=== PATIENT | female | born 1975 | race Two or more races ===

== ENCOUNTER 2016-06-29 15:03 | Emergency (ER) | payer OTHER ==
[2016-06-29 15:14] VITALS: BP 145/68; PULSE 78; RESP 18; TEMP 98.4; O2SAT 97
--- NOTE | 2016-06-29 16:38 | EDPHY ---
H & P Time Seen by Provider: 06/29/16 15:56 HPI/ROS: CHIEF COMPLAINT: Left foot pain. HISTORY OF PRESENT ILLNESS: 41-year-old female presents to the emergency department with left foot pain. The patient was in an exercise class earlier this morning and twisted her left foot. She complains of isolated pain to the left foot. She denies any other trauma or injury. She has pain especially with weight-bearing. ROS: Denies numbness or tingling in her toes, pain in her left ankle, left calf or knee. Past Medical/Surgical History: Negative Social History: and lives in [place] Smoking Status: Never smoked Physical Exam: Examination left foot reveals swelling and ecchymosis to the dorsal lateral aspect of her left foot. She has reproducible pain with palpation to the base of the 5th metatarsal of the left foot. No palpable crepitus or other bony abnormality. Nontender to palpate the left ankle. Calf is nontender. Achilles tendon is intact. Strong dorsalis pedis pulse on the dorsal aspect of the left foot. Constitutional: Initial Vital Signs Temperature (C) 36.9 C 06/29/16 15:11 Heart Rate 78 06/29/16 15:11 Respiratory Rate 18 06/29/16 15:11 Blood Pressure 145/68 H 06/29/16 15:11 O2 Sat (%) 97 06/29/16 15:11 O2 Delivery Mode Room Air Allergies/Adverse Reactions: No Known Allergies Allergy (Unverified 06/29/16 15:16) Home Medications: Medication Instructions Recorded NK [No Known Home Meds] 06/29/16 MDM/Departure - MDM Diagnostics: X-rays of the left foot reveal nondisplaced fracture of the base of the 5th metatarsal. This is reviewed by myself the PAC system. Radiology interpretation to follow. Procedures: Patient was placed in a postop shoe and examined post application in good placement with normal [employer]. ED Course/Re-evaluation: 41-year-old female presents with left foot pain. X-rays reveal left 5th metatarsal fracture. She was placed in a postop shoe and given orthopedic referral. - Depart Disposition: Home, Routine, Self-Care Clinical Impression: Fracture of fifth metatarsal bone of left foot Qualifiers: Encounter type: initial encounter Fracture type: closed Fracture alignment: nondisplaced Qualified Code(s): S92.355A - Nondisplaced fracture of fifth metatarsal bone, left foot, initial encounter for closed fracture Condition: Good Instructions: Foot Fracture in Adults (ED) Additional Instructions: Post op shoe for comfort and support. Nonweightbearing, crutches. Ibuprofen 600 mg every 8 hours as needed for pain. Follow up with orthopedic surgeon in 1 week to recheck. Use el zapato post operacion para comodidad y apoyo. Sin peso, use muletas, Ibuprofeno 600 mg cada 8 horas angy sea necesario para el dolor. Hacer zakia de seguimiento con cirujano ortopedico en 1 semana para chequeo de nuevo. Referrals: Missy De La Paz MD [Medical Doctor] - 5-7 days, call for appt. (Orthopedic surgeon on-call) Print Language: Sammarinese
== END 2016-06-29 17:17 | disposition home or self-care (01) ==
DX: S92.355A Nondisplaced fracture of fifth metatarsal bone, left foot, initial encounter for closed fracture (principal); X58.XXXA Exposure to other specified factors, initial encounter; Y93.89 Activity, other specified
CPT/HCPCS: L3260